=== PATIENT | female | born 1970 | race Asian ===

== ENCOUNTER → 2017-09-30 | Outpatient (CLI) | payer MEDICAID ==
[~2017-09-30] MED LIST: DOCU-131 PO; IBUP-1223 PO; MULT-224 PO; NAPR220T77 PO; OXYC-302 PO; ZOLP-413 PO
== END | disposition home or self-care (01) ==
LOC: CFH 08:59
PROVIDERS: ATTEND Genetic Counselor, MS
DX: Z12.31 Encounter for screening mammogram for malignant neoplasm of breast (principal); R92.1 Mammographic calcification found on diagnostic imaging of breast
CPT/HCPCS: 77063; G0202

== ENCOUNTER → 2017-12-02 | Outpatient (CLI) | payer MEDICAID | END | disposition home or self-care (01) | LOC: CFH 11:39 | PROVIDERS: ATTEND Genetic Counselor, MS | DX: R92.2 Inconclusive mammogram (principal) | CPT/HCPCS: 77065 ==